=== PATIENT | male | born 1950 | race Two or more races ===

== ENCOUNTER 2022-11-09 10:28 | Inpatient (IN) | payer BC, MEDICARE ==
[~2022-11-09] VITALS: Ht 172.7 cm; Wt 43.5 kg
[2022-11-09] VITALS (24 sets, daily range): BP systolic 74–125; BP diastolic 53–84
[2022-11-09] MEDS ORDERED: NA P133E RC (10:42)
[2022-11-09] MEDS ORDERED: FAMO20TA8 PO (10:42)
[2022-11-09] MEDS ORDERED: LACT10SO3 PO (10:42)
[2022-11-09] MEDS ORDERED: DOCU-141 PO (10:42)
[2022-11-09] MEDS ORDERED: POLY17PO4 PO (10:42)
[2022-11-09] MEDS ORDERED: MAGN400O6 PO (10:42)
[2022-11-09] MEDS ORDERED: ASCO-352 PO (10:42)
[2022-11-09] MEDS ORDERED: DEXA2TAB PO (10:42)
[2022-11-09] MEDS ORDERED: BISA10SU11 RC (10:42)
[2022-11-09] MEDS ORDERED: MULT-447 PO (10:42)
[2022-11-09] MEDS ORDERED: TAMS-12 PO (10:42)
[2022-11-09] MEDS ORDERED: GABA600T12 PO (10:42)
[2022-11-09] MEDS ORDERED: AMIN30LI2 PO (10:42)
[2022-11-09] MEDS ORDERED: ACET-868 PO (10:42)
[2022-11-09] MEDS ORDERED: LISI10TA29 PO (10:42)
[2022-11-09] MEDS ORDERED: SENN-261 PO (10:42)
[2022-11-09] MEDS ORDERED: CYCL5TAB PO (10:42)
[2022-11-09] MEDS ORDERED: HYDR-3980 PO (10:42)
[2022-11-09] MEDS ORDERED: IV NS 0.9% 1,000 ML BAG IV ONE ×2 (11:00→13:30)
--- NOTE | 2022-11-09 11:00 | NUR ---
[facility] FOR NOTED HYPOTENSION AND LOW O2 SATURATION, 70% IN FIELD
--- NOTE | 2022-11-09 11:00 | NUR ---
PT HYPOTHERMIC ASSEMBLY INSPECTOR HELPER, GIVEN 400ML NS ASSEMBLY INSPECTOR HELPER. ON NON REBREATHER SATTING 100%
--- NOTE | 2022-11-09 11:03 | NUR ---
MOVE SHEET SUBMITTED.
--- NOTE | 2022-11-09 11:21 | NUR ---
SWABBED PATIENT FOR COVID. SENT TO LAB.
--- NOTE | 2022-11-09 12:15 | NUR ---
2ND IVF HOOKED AND RUNNING AT MIDLINE ,RT ARM. CARRIED OUT MD VERBAL ORDER
--- NOTE | 2022-11-09 12:17 | NUR ---
midline iv inserted rt arm
--- NOTE | 2022-11-09 12:45 | NUR ---
URINE COLLECTED AND SENT TO THE LAB
--- NOTE | 2022-11-09 12:49 | NUR ---
BLD DRAWN FROM MIDLINE. C&S COLLECTED AND SENT TO LAB
[2022-11-09 12:56] LABS: BASOPHILS # (AUTO) 0.1 K/uL (0.0-0.2); BASOPHILS % (AUTO) 0.2 % (0.0-2.0); HEMATOCRIT 31 % (39-51); HEMOGLOBIN 9.7 g/dL (13.5-17.5); LYMPHOCYTES # (AUTO) 0.6 K/uL (0.8-4.8); LYMPHOCYTES % (AUTO) 1.7 % (20.0-44.0); MEAN CORPUSCULAR HGB CONC 32 g/dl (31.0-36.0); MEAN CORPUSCULAR VOLUME 80 fL (80-96); MONOCYTES # (AUTO) 0.6 K/uL (0.1-1.30); MONOCYTES % (AUTO) 1.7 % (2.0-12.0); NEUTROPHILS # (AUTO) 33.5 K/uL (1.8-8.9); NEUTROPHILS % (AUTO) 96.4 % (43.0-81.0); PLATELET COUNT (AUTO) 165 K/uL (150-450); RED BLOOD CELL COUNT(AUTO) 3.84 MIL/uL (4.5-6.0)
--- NOTE | 2022-11-09 13:03 | NUR ---
HILARY CONLEY [facility] TEL [phone] AND FAX [phone]
[2022-11-09 13:10] LABS: CALCIUM, SERUM 8.6 mg/dL (8.5-10.1); CARBON DIOXIDE 20 mmol/L (21-32); CHLORIDE 100 mmol/L (98-107); CREATININE 3.6 mg/dL (0.6-1.3); GLUCOSE 91 mg/dL (74-106); SODIUM SERUM 134 mmol/L (136-145); WHITE BLOOD COUNT (AUTO) 34.8 K/uL (4.3-11.0)
[2022-11-09 13:12] LABS: POTASSIUM 6.2 mmol/L (3.5-5.1); UREA NITROGEN, BLOOD 111 mg/dL (7-18)
--- NOTE | 2022-11-09 13:12 | NUR ---
BUN 111 , K 6.2, DR NOTIFIED
[2022-11-09 13:16] LABS: BILIRUBIN,URINE 1+ (NEGATIVE); COLOR,URINE DARK YELLOW (YELLOW); LEUKOCYTE ESTERASE ,URINE 3+ (NEGATIVE); NITRITE, URINE POSITIVE (NEGATIVE); PH,URINE 5.5 (5.0-8.0); PROTEIN,URINE 1+ mg/dl (NEGATIVE); UGLUCOSE NEGATIVE (NEGATIVE)
[2022-11-09 13:16] LABS: ALANINE AMINOTRANSFERASE 17 U/L (12-78); ALBUMIN 2.3 g/dL (3.4-5.0); ALKALINE PHOSPHATASE 73 U/L (46-116); BILIRUBIN,DIRECT 0.4 mg/dL (0.0-0.2); BILIRUBIN,TOTAL 0.6 mg/dL (0.2-1.0); TOTAL PROTEIN, SERUM 6.3 g/dL (6.4-8.2)
[2022-11-09 13:25] LABS: BACTERIA,URINE Moderate /HPF (None Seen); SQUAMOUS EPITHELIAL CELL,UR Few /HPF (None Seen)
[2022-11-09] MEDS ORDERED: SODIUM POLYSTYRENE SULFONATE 15 G/60 ML BOTTLE PO ONE (13:30)
[2022-11-09] MEDS ORDERED: FUROSEMIDE 40 MG/4 ML VIAL IV ONE (13:30)
[2022-11-09] MEDS ORDERED: INSULIN REGULAR, HUMAN 100 UNIT/ML 10 ML VIAL IV ONE (13:30)
[2022-11-09] MEDS ORDERED: VANCOMYCIN 1 GM in IV D5W 250 ML IV ONE (13:30)
[2022-11-09] MEDS ORDERED: CEFEPIME 1 GM in IV D5W 50 ML IV ONE (13:30)
[2022-11-09] MEDS ORDERED: CALCIUM CHLORIDE 1,000 MG/10 ML DISP.SYRIN IV ONE (13:30)
[2022-11-09] MEDS ORDERED: DEXTROSE 50%-WATER 50 ML DISP.SYRIN IV ONE (13:30)
[2022-11-09] MEDS ORDERED: FUROSEMIDE 20 MG/2 ML VIAL ONE (13:34)
[2022-11-09] MEDS ORDERED: DEXTROSE 50%-WATER 50 ML DISP.SYRIN ONE (13:34)
[2022-11-09] MEDS ORDERED: SODIUM POLYSTYRENE SULFONATE 15 G/60 ML BOTTLE ONE ×3 (13:34→22:40)
[2022-11-09 13:35] LABS: ASPARTATE AMINOTRANSFERASE 23 U/L (15-37)
[2022-11-09] MEDS ORDERED: INSULIN REGULAR, HUMAN 100 UNIT/ML 10 ML VIAL ONE (13:35)
--- NOTE | 2022-11-09 13:36 | NUR ---
CALLED [facility] [phone] DR. ACUÑA SPOKE WITH DR. LUU. PLEASE CALL DR. MABRY FOR ADMISSION.
--- NOTE | 2022-11-09 13:39 | NUR ---
CALLED [facility] [phone] DR. CLOTILDE FINNEY.
[2022-11-09] MEDS ORDERED: CALCIUM CHLORIDE 1,000 MG/10 ML DISP.SYRIN ONE (13:57)
--- NOTE | 2022-11-09 14:24 | NUR ---
CALLED [facility] [phone] DR. MABRY PAGED AGAIN.
--- NOTE | 2022-11-09 14:33 | NUR ---
GOT BED 105 ADMITTING NOTIFIED.
--- NOTE | 2022-11-09 14:57 | NUR ---
Trish jensen in [facility] - 11/09/22 at 1459 by OLIVA bld transfusion started at 1455 at LT WRIST 20G RUNNING THRU PUMP
--- NOTE | 2022-11-09 15:20 | NUR ---
REPORT GIVEN TO NURSE SABILLON FOR [facility]
--- NOTE | 2022-11-09 15:43 | NUR ---
THE PATIENT IS TRANSFERED TO ROOM 105 IN STABLE CONDITION AND PER ACLS POLICY
--- NOTE | 2022-11-09 15:51 | NUR ---
computer patternmaker note pt is alert and oriented x1 at this time. no signs of pain or discomfort. pt noted to have right upper arm midline and left wrist iv. iv intact, patent and flushing well. pt is on bedside pvc monitor currently sinus tachycardia at 109.pt on 5 l nasal cannula saturating above 92% pt has curtis cathether yellow/alireza color draining to gravity. all safety measures in place. call light within reach. bed locked at lowest position. side rails up x2. bed alarm on.
[2022-11-09] MEDS ORDERED: IV NS 0.9% 500 ML IV ONE (16:30)
[2022-11-09] MEDS ORDERED: PIPERACILLIN /TAZOBACTAM 3.375 G in IV D5W 50 ML IV SCH (16:30)
[2022-11-09] MEDS ORDERED: IV NS 0.9% 1,000 ML IV SCH (16:30)
[2022-11-09] MEDS ORDERED: ACETAMINOPHEN 325 MG TABLET PO PRN (16:30)
[2022-11-09] MEDS ORDERED: SODIUM POLYSTYRENE SULF. PWD 15 GM UDC RC ONE (17:30)
--- NOTE | 2022-11-09 17:46 | NUR ---
DR. PAPPAS NOTIFIED.
--- NOTE | 2022-11-09 18:00 | NUR ---
RN NOTE gave report to [facility] DINKEY DISPATCHER for contuity of care. transferred via ACLS protocol to room 259
--- NOTE | 2022-11-09 18:00 | NUR ---
RN NOTES RECEIVED PT FROM TELE FLOOR , PT IS LETHARGIC , FOLLOWS SIMPLE COMMAND, SLOW TO VERBAL RESPONDS , ON TELE ST HR IN 100'S, LOW BP NOTED , BOLUS NS 500CC, IV STARTED PER MD ORDER . IV SITES CDI, DR MABRY NOTIFIED, ORDER RECEIVED FOR LEVO DRIP, CONTINUE TO MONITOR
[2022-11-09] MEDS: PIPERACILLIN /TAZOBACTAM 2.25 G in IV D5W 50 ML IV SCH (18:36)
[2022-11-09] MEDS: IV NS 0.9% 1,000 ML IV PRN (18:37)
--- NOTE | 2022-11-09 19:08 | NUR ---
RN NOTES BP =101/63 , WILL ENDORSE TO DIRECTOR OF SOFTWARE DEVELOPMENT NURSE FOR CONTINUITY OF CARE .
[2022-11-09 19:15] LABS: LYMPHOCYTES % (MANUAL) 4 % (16-48); MONOCYTES % (MANUAL) 3 % (0-11.0); NEUTROPHILS % (MANUAL) 93 (42-76)
[2022-11-09] MEDS: NOREPINEPHRINE 32 MG in IV NS 0.9% 218 ML IV PRN (19:40)
[2022-11-09 19:47] LABS: CALCIUM, SERUM 9.6 mg/dL (8.5-10.1); CARBON DIOXIDE 14 mmol/L (21-32); CHLORIDE 100 mmol/L (98-107); CREATININE 3.3 mg/dL (0.6-1.3); GLUCOSE 56 mg/dL (74-106); SODIUM SERUM 132 mmol/L (136-145)
[2022-11-09 19:48] LABS: POTASSIUM 6.6 mmol/L (3.5-5.1)
[2022-11-09 19:49] LABS: UREA NITROGEN, BLOOD 103 mg/dL (7-18)
[2022-11-09] MEDS ORDERED: SODIUM POLYSTYRENE SULFONATE 15 G/60 ML BOTTLE RC ONE (21:00)
--- NOTE | 2022-11-09 21:06 | NUR ---
ICU/FLEET ADMINISTRATIVE ASSISTANT 1919-LEVO 32MG STARTED FOR LOW BP, BY BELL HOLE DIGGER NURSE. WILL MONITOR THIS PT. 1939-PT TAKEN DOWN STAT CT ABD. 2014- MADE AWARE OF CRITICAL LAB POTASSIUM 6.6, WAIT FOR ORDERS. PT IS LETHARGIC UNABLE TO TAKE PO 2029-CRITICAL IMAGINE RESULTS SENT CLOTILDE. SAID HE WAS GOING TO PUT IN ORDERS. 2114-CLOTILDE CALLED [facility] ABOUT EMERGENCY HD.
[2022-11-09 21:08] LABS: ABG BASE EXCESS -7.6 mmol/L; ABG PCO2 37.3 mmHg (35.0-45.0); ABG PH 7.304 (7.350-7.450); ABG PO2 200.1 mmHg (75.0-100.0); COHb 0.3 % (0.5-1.5); MetHb 0.5 % (0.0-1.5); O2Hb 98.3 % (94.0-97.0); SITE, ABG Right Radial; VENT MODE, BG 5LPM NC
--- NOTE | 2022-11-09 21:34 | NUR ---
ICU/AMBULATORY TECHNOLOGIST SPOT CHECK OF BLOOD SUGAR WAS 74. LAB GIL CHEM PANEL BS WAS 56. WILL MONITOR THIS PT.
--- NOTE | 2022-11-09 21:45 | NUR ---
ICU/MONUMENT STONECUTTER ABG DONE AND RESULTED CLOTILDE SAID TO GIVE X2 AMP BICARB, ABG HCO3-18.1. THIS ORDER WAS PLACED AND CARRIED OUT.
[2022-11-09] MEDS ORDERED: SODIUM BICARBONATE SYR 50 MEQ/50 ML DISP.SYRIN IV ONE (22:00)
--- NOTE | 2022-11-09 23:47 | NUR ---
ICU/COSTUME TECHNICIAN KAYEXALATE 60GRAM BROUGHT UP FROM NIGHT LOCKER. FLEXISEAL PLACED TO HELP ADMINISTRATE MEDIATIONS. WILL CONTINUE TO MONITOR THIS PT.
[2022-11-10] VITALS (72 sets, daily range): BP systolic 61–140; BP diastolic 55–92
--- NOTE | 2022-11-10 00:30 | NUR ---
ICU/REMNANT SORTER PT HAS CHEM PANEL DONE FOR HIGH POTASSIUM LEVELS, WAS 6.6 NOW 4.8. PT CONTINUES TO HAVE WATERY STOOL. IN AM PT HAS MORE LABS.
[2022-11-10] MEDS: PIPERACILLIN /TAZOBACTAM 2.25 G in IV D5W 50 ML IV SCH ×4 (00:49→23:59)
[2022-11-10 01:19] LABS: CARBON DIOXIDE 23 mmol/L (21-32); CHLORIDE 104 mmol/L (98-107); CREATININE 2.8 mg/dL (0.6-1.3); GLUCOSE 96 mg/dL (74-106); POTASSIUM 4.8 mmol/L (3.5-5.1); SODIUM SERUM 141 mmol/L (136-145)
[2022-11-10 01:20] LABS: UREA NITROGEN, BLOOD 92 mg/dL (7-18)
--- NOTE | 2022-11-10 02:41 | NUR ---
ICU/MANUFACTURING ENGINEERING TECHNOLOGIST PT APPEARS TO BE MORE AWAKE ABLE TO ASK FOR THINGS AND MAKE NEEDS KNOWN.
[2022-11-10 05:02] LABS: BASOPHILS % (AUTO) 0.2 % (0.0-2.0); EOSINOPHILS % (AUTO) 0.1 % (0.0-6.0); HEMATOCRIT 32 % (39-51); LYMPHOCYTES # (AUTO) 0.6 K/uL (0.8-4.8); MEAN CORPUSCULAR HGB CONC 31 g/dl (31.0-36.0); MEAN CORPUSCULAR VOLUME 81 fL (80-96); MONOCYTES % (AUTO) 3.6 % (2.0-12.0); NEUTROPHILS # (AUTO) 26.3 K/uL (1.8-8.9); NEUTROPHILS % (AUTO) 94.1 % (43.0-81.0); PLATELET COUNT (AUTO) 174 K/uL (150-450); RED BLOOD CELL COUNT(AUTO) 3.94 MIL/uL (4.5-6.0); WHITE BLOOD COUNT (AUTO) 27.9 K/uL (4.3-11.0)
[2022-11-10 05:23] LABS: CALCIUM, SERUM 8.8 mg/dL (8.5-10.1); CARBON DIOXIDE 22 mmol/L (21-32); CHLORIDE 105 mmol/L (98-107); CREATININE 2.5 mg/dL (0.6-1.3); GLUCOSE 95 mg/dL (74-106); POTASSIUM 4.5 mmol/L (3.5-5.1); SODIUM SERUM 142 mmol/L (136-145)
[2022-11-10 05:27] LABS: UREA NITROGEN, BLOOD 84 mg/dL (7-18)
[2022-11-10 05:30] LABS: THYROID STIMULATING HORMONE 0.384 uIU/mL (0.358-3.74)
[2022-11-10] MEDS: IV NS 0.9% 1,000 ML IV PRN ×2 (06:53→17:50)
--- NOTE | 2022-11-10 07:20 | NUR ---
PATIENT IS AWAKE, ALERT X 1-2. ON RA, SAT 98%. IV ACCESS RIGHT UA MIDLINE, PATENT, RUNNING NS AT 100ML/HR. CASTILLO CATH IN PLACE, DRAINING CROW COLLORED URINE BY GRAVITY. FLEXISEAL FOR BM, HAS 200 ML OF OUTPUT IN THE BAG. SR/ST ON HEMMING AND TACKING MACHINE OPERATOR. SAFETY MEASURES IMPLEMENTED, BED LOCKED, SIDE RAILS AR UP.
[2022-11-10 16:51] LABS: BAND % (MANUAL) 2 % (0.0-5.0); LYMPHOCYTES % (MANUAL) 3 % (16-48); MONOCYTES % (MANUAL) 1 % (0-11.0); NEUTROPHILS % (MANUAL) 94 (42-76)
--- NOTE | 2022-11-10 19:15 | NUR ---
RN CLOSING NOTE PT ASLEEP, O2 ON RA SAT 99%, IV ACCESS RIGHT UA, INTACT. CASTILLO CATH IN PLACE, DRAINING BY GRAVITY, FLEXESEAL IS OUT. ENDORSE TO THE UPCOMING SHIFT NURSE FOR [facility].
--- NOTE | 2022-11-10 19:28 | NUR ---
REPORTING SPECIALIST. INITIAL ASSESSMENT. RECEIVED THE PT REST IN BED. SLEEPING VERY LETHARGIC. PT IS ROOM AIR. SAT 96%. NO ACUTE DISTRESS NOTED. COLLECTION SYSTEMS CONSULTANT SHOWING NSR. IV RT UPPER ARM MID LINE. LEVOPHED 0.1MCG/KG/MIN, IVF NS 100 ML/H. FC PATENT. WILL CONTINUE TO MONITOR VITALS.
--- NOTE | 2022-11-10 20:00 | NUR ---
agricultural plow operator. night monitor showing 30mts a fib. rate is 108. notified DR canales. 2030 BACK TO NSR.
[2022-11-11] VITALS (96 sets, daily range): BP systolic 79–135; BP diastolic 54–112
--- NOTE | 2022-11-11 02:58 | NUR ---
curriculum and assessment coordinator. am care given. remaining same ivf running. pt is room air. sat 98%. no acute distress noted. equipment monitor phototypesetting showing nsr. iv rt upper arm mid line. ivf ns 100ml/h. levophed 0.1mcg/kg/min, fc patent. urine draining. hob elevated. turn and reposition q2h. will continue to monitor vitals.
[2022-11-11 04:34] LABS: BASOPHILS % (AUTO) 0.1 % (0.0-2.0); EOSINOPHILS % (AUTO) 0.5 % (0.0-6.0); HEMATOCRIT 31 % (39-51); HEMOGLOBIN 9.8 g/dL (13.5-17.5); LYMPHOCYTES # (AUTO) 0.5 K/uL (0.8-4.8); LYMPHOCYTES % (AUTO) 2.8 % (20.0-44.0); MEAN CORPUSCULAR HGB CONC 31 g/dl (31.0-36.0); MEAN CORPUSCULAR VOLUME 81 fL (80-96); MONOCYTES # (AUTO) 0.9 K/uL (0.1-1.30); MONOCYTES % (AUTO) 4.8 % (2.0-12.0); NEUTROPHILS # (AUTO) 17.5 K/uL (1.8-8.9); NEUTROPHILS % (AUTO) 91.8 % (43.0-81.0); PLATELET COUNT (AUTO) 154 K/uL (150-450); RED BLOOD CELL COUNT(AUTO) 3.87 MIL/uL (4.5-6.0); WHITE BLOOD COUNT (AUTO) 19.1 K/uL (4.3-11.0)
[2022-11-11 04:48] LABS: CALCIUM, SERUM 8.5 mg/dL (8.5-10.1); CARBON DIOXIDE 22 mmol/L (21-32); CHLORIDE 108 mmol/L (98-107); CREATININE 1.8 mg/dL (0.6-1.3); GLUCOSE 111 mg/dL (74-106); MAGNESIUM 2.3 mg/dL (1.8-2.4); POTASSIUM 3.5 mmol/L (3.5-5.1); SODIUM SERUM 144 mmol/L (136-145); UREA NITROGEN, BLOOD 57 mg/dL (7-18)
[2022-11-11] MEDS: IV NS 0.9% 1,000 ML IV PRN ×2 (07:00→14:05)
--- NOTE | 2022-11-11 07:30 | NUR ---
OPENING NOTE: REPORT RECEIVED FROM LYNN ACUNA. ORDERS AND LABS REVIEWED DURING REPORT. PT CONTINUES TO BE ON LEVOPHED GTT FOR LOW BLOOD PRESSURE, TITRATED PER MD ORDERS. PT HAS A POOR APPETITE, ENCOURAGED TO EAT. PT CHECKED ON HOURLY AND PRN BY NURSING STAFF.
[2022-11-11] MEDS: PIPERACILLIN /TAZOBACTAM 2.25 G in IV D5W 50 ML IV SCH ×2 (08:42→16:24)
[2022-11-11] MEDS: ASPIRIN 81 MG TAB.CHEW PO SCH (08:43)
[2022-11-11] MEDS: NOREPINEPHRINE 32 MG in IV NS 0.9% 218 ML IV PRN (08:43)
[2022-11-11] MEDS ORDERED: FLUDROCORTISONE 0.1 MG TABLET PO SCH (12:00)
[2022-11-11] MEDS ORDERED: HYDROCORTISONE SOD SUCCINATE 100 MG/2 ML VIAL IV SCH (13:00)
[2022-11-11] MEDS: ENSURE ENLIVE 237 ML LIQUID (VANILLA) PO SCH ×2 (13:00→17:31)
[2022-11-11] MEDS ORDERED: POLYETHYLENE GLYCOL 3350 17 GM POWD.PACK PO PRN (14:00)
[2022-11-11] MEDS ORDERED: HYDROCODONE/APAP 10/325MG TABLET PO PRN (14:00)
[2022-11-11] MEDS ORDERED: NA PHOS,M-B/NA PHOS,DI-BA 1 EA ENEMA RC PRN (14:00)
[2022-11-11] MEDS ORDERED: BISACODYL SUPP (10 MG) 10 MG/SUPP.RECT SUPP.RECT RC PRN (14:00)
[2022-11-11] MEDS ORDERED: MAGNESIUM HYDROXIDE 30 ML UDC PO PRN (14:00)
[2022-11-11] MEDS ORDERED: ALBUTEROL FS 2.5 MG/0.5 ML VIAL.NEB NEB PRN (14:00)
[2022-11-11] MEDS ORDERED: FLUDROCORTISONE 0.1 MG TABLET PO ONE (16:00)
[2022-11-11] MEDS: CYCLOBENZAPRINE 10 MG TABLET PO SCH (16:24)
[2022-11-11] MEDS: GABAPENTIN 400 MG CAPSULE PO SCH (16:24)
[2022-11-11] MEDS: LACTULOSE 10 G/15 ML UDC (PYXIS) PO SCH ×2 (16:28→17:00)
[2022-11-11] MEDS: DEXAMETHASONE 1 MG TABLET PO SCH (16:33)
[2022-11-11] MEDS: TAMSULOSIN 0.4 MG CAP.SR.24H PO SCH ×2 (18:00→18:47)
[2022-11-11] MEDS ORDERED: ATORVASTATIN 10 MG TABLET PO SCH (22:00)
[2022-11-11] MEDS: SENNOSIDES 8.6 MG TABLET PO SCH (22:07)
[2022-11-12] VITALS (56 sets, daily range): BP systolic 86–153; BP diastolic 58–96
[2022-11-12] MEDS: PIPERACILLIN /TAZOBACTAM 2.25 G in IV D5W 50 ML IV SCH ×3 (00:38→16:21)
[2022-11-12] MEDS: IV NS 0.9% 1,000 ML IV PRN ×2 (00:44→11:57)
[2022-11-12 05:07] LABS: BASOPHILS % (AUTO) 0.1 % (0.0-2.0); HEMATOCRIT 30 % (39-51); HEMOGLOBIN 9.6 g/dL (13.5-17.5); LYMPHOCYTES # (AUTO) 0.5 K/uL (0.8-4.8); LYMPHOCYTES % (AUTO) 4.6 % (20.0-44.0); MEAN CORPUSCULAR HGB CONC 32 g/dl (31.0-36.0); MEAN CORPUSCULAR VOLUME 82 fL (80-96); MONOCYTES # (AUTO) 0.5 K/uL (0.1-1.30); MONOCYTES % (AUTO) 4.8 % (2.0-12.0); NEUTROPHILS # (AUTO) 9.7 K/uL (1.8-8.9); NEUTROPHILS % (AUTO) 90.5 % (43.0-81.0); PLATELET COUNT (AUTO) 151 K/uL (150-450); WHITE BLOOD COUNT (AUTO) 10.7 K/uL (4.3-11.0)
[2022-11-12 05:28] LABS: ALANINE AMINOTRANSFERASE 14 U/L (12-78); ALBUMIN 1.8 g/dL (3.4-5.0); ALKALINE PHOSPHATASE 58 U/L (46-116); ASPARTATE AMINOTRANSFERASE 14 U/L (15-37); BILIRUBIN,TOTAL 0.6 mg/dL (0.2-1.0); CALCIUM, SERUM 8.2 mg/dL (8.5-10.1); CARBON DIOXIDE 22 mmol/L (21-32); CHLORIDE 109 mmol/L (98-107); CREATININE 1.3 mg/dL (0.6-1.3); GLUCOSE 156 mg/dL (74-106); MAGNESIUM 2.2 mg/dL (1.8-2.4); POTASSIUM 3.5 mmol/L (3.5-5.1); SODIUM SERUM 142 mmol/L (136-145); TOTAL PROTEIN, SERUM 5.4 g/dL (6.4-8.2); UREA NITROGEN, BLOOD 42 mg/dL (7-18)
--- NOTE | 2022-11-12 07:05 | NUR ---
RN NOTES RECEIVED PT ON BED, ALERT/ FOLLOWS COMMAND, PT IS ROOM AIR. SAT WNL, OFF LEVO AT THIS TIME, NO ACUTE DISTRESS NOTED. CARDIOVASCULAR PHYSICIAN ASSISTANT SHOWING NSR. IV SITES CDI, IVF NS 100 ML/HR RUNNING, CASTILLO DRAINING TO GRAVITY, SR UP x3, CALL LIGHT WWITHIN EASY REACH, BED LOCKED AND IN LOWEST POSITION, CONTINUE TO MONITOR
--- NOTE | 2022-11-12 07:19 | NUR ---
ICU/SALES SERVICE COORDINATOR STABLE BP, LEVO WAS PLACED ON HOLD. WILL MONITOR THIS PT FOR ANY CHANGES.
[2022-11-12] MEDS: FAMOTIDINE (20 MG) 20 MG TABLET PO SCH (08:32)
[2022-11-12] MEDS: DOCUSATE SODIUM 100 MG CAPSULE PO SCH ×2 (08:32→16:26)
[2022-11-12] MEDS: ASCORBIC ACID 500 MG TABLET PO SCH (08:32)
[2022-11-12] MEDS: CYCLOBENZAPRINE 10 MG TABLET PO SCH ×3 (08:32→16:26)
[2022-11-12] MEDS: LACTULOSE 10 G/15 ML UDC (PYXIS) PO SCH ×3 (08:32→16:26)
[2022-11-12] MEDS: MULTIVIT W/MINERALS 1 TAB TABLET PO SCH (08:32)
[2022-11-12] MEDS: ASPIRIN 81 MG TAB.CHEW PO SCH (08:32)
[2022-11-12] MEDS: GABAPENTIN 400 MG CAPSULE PO SCH ×2 (08:32→16:26)
[2022-11-12] MEDS: DEXAMETHASONE 1 MG TABLET PO SCH ×2 (08:35→16:26)
[2022-11-12] MEDS: PROSOURCE / PROSTAT (PYXIS) 30 ML UDC PO SCH (08:35)
[2022-11-12] MEDS: ENSURE ENLIVE 237 ML LIQUID (VANILLA) PO SCH ×3 (08:36→16:26)
[2022-11-12 08:48] LABS: IRON, SERUM 16 ug/dl (50-175); TOTAL IRON BINDING CAPACITY 77 ug/dl (250-450)
[2022-11-12] MEDS ORDERED: FLUDROCORTISONE 0.1 MG TABLET PO SCH (09:00)
[2022-11-12 11:25] LABS: FERRITIN 387 ng/mL (8-388)
--- NOTE | 2022-11-12 16:30 | NUR ---
RN NOTES PT REFUSING TO TAKE MEDS AND AM AND PM CARE, STATED WANTS TO SLEEP . BP STABLE , OFF LEVO , DR ROPER NOTIFIED .
[2022-11-12] MEDS: TAMSULOSIN 0.4 MG CAP.SR.24H PO SCH (17:57)
--- NOTE | 2022-11-12 18:24 | NUR ---
RN NOTES PT OFF LEVO , REFUSING CARE AND MD LENNOX AWARE , VSS STABLE, WILL ENDORSE TO PLASTIC TUBING INSULATION SUPERVISOR NURSE FOR CONTINUITY OF CARE .
--- NOTE | 2022-11-12 19:30 | NUR ---
RECEIVED PT ASLEEP ON BED, EASILY AROUSABLE/RESPONSIVE. A/OX3. PT IS ON ROOM AIR. SAT WNL, ATTACHED TO MANAGER CATH LAB SHOWING NSR. IV SITES NERY ML #18G, LT WRIST # 22G, CDI, IVF NS INFUSING AT 100 ML/HR. CASTILLO DRAINING TO GRAVITY. OFFERED ENSURE. PT REFUSED. SAFETY MEASURES IN PLACE. SR UP x3, CALL LIGHT WITHIN EASY REACH, BED LOCKED AND IN LOWEST POSITION. HOB SLIGHTLY ELEVATED. WILL CONTINUE PLAN OF CARE.
--- NOTE | 2022-11-12 20:26 | NUR ---
REPORT GIVEN TO LUZ ACUNA. V/Kelton ALBRIGHT. WILL TRANSFER VIA ACLS PROTOCOL ORDERED. PT INFORMED.
[2022-11-12] MEDS: SENNOSIDES 8.6 MG TABLET PO SCH (22:00)
--- NOTE | 2022-11-12 22:00 | NUR ---
VERN M/S RN RECEIVING NOTE PATIENT BROUGHT IN UNIT AT AROUND 2111, ACCOMPANIED BY 2 ICU NURSES, VIA HOSPITAL BED. PATIENT IS ALERT AND ORIENTED BUT NON-VERBAL. NO S/S OF APPARENT DISTRESS ON ROOM AIR. DENIES PAIN. PATIENT HAS 2 IV ACCESS ON RIGHT UPPER ARM MIDLINE RUNNING NS @100MLS/HR AND LEFT WRIST #22G ON SALINE LOCK. PATIENT CASTILLO CATHETER DRAINING VIA GRAVITY, DARK YELLOW URINE. PATIENT ORIENTED IN THE UNIT AND THE USE OF CALL LIGHT. V/S TAKEN AND CHARTED AND FOLLOWS: 92/58, HR-97, T-97.8, RR-18BPM, AND SATURATION 96% ON ROOM AIR. SAFETY IN PLACE-- BED IN LOWEST, LOCKED POSITION, CALL LIGHT WITHIN REACH, BED RAILS UP X4. PATIENT TRANSFERRED M/S STATUS. WILL CONTINUE WITH PATIENT'S PLAN OF CARE.
[2022-11-13] MEDS: PIPERACILLIN /TAZOBACTAM 2.25 G in IV D5W 50 ML IV SCH ×3 (00:33→16:13)
[2022-11-13] MEDS: IV NS 0.9% 1,000 ML IV PRN ×2 (00:43→16:21)
[2022-11-13 07:05] LABS: BASOPHILS % (AUTO) 0.2 % (0.0-2.0); EOSINOPHILS % (AUTO) 1.1 % (0.0-6.0); HEMATOCRIT 35 % (39-51); HEMOGLOBIN 10.9 g/dL (13.5-17.5); LYMPHOCYTES # (AUTO) 0.8 K/uL (0.8-4.8); LYMPHOCYTES % (AUTO) 6.6 % (20.0-44.0); MEAN CORPUSCULAR HGB CONC 32 g/dl (31.0-36.0); MEAN CORPUSCULAR VOLUME 82 fL (80-96); MONOCYTES # (AUTO) 0.8 K/uL (0.1-1.30); MONOCYTES % (AUTO) 6.9 % (2.0-12.0); NEUTROPHILS # (AUTO) 9.8 K/uL (1.8-8.9); NEUTROPHILS % (AUTO) 85.2 % (43.0-81.0); PLATELET COUNT (AUTO) 159 K/uL (150-450); RED BLOOD CELL COUNT(AUTO) 4.23 MIL/uL (4.5-6.0); WHITE BLOOD COUNT (AUTO) 11.5 K/uL (4.3-11.0)
--- NOTE | 2022-11-13 07:30 | NUR ---
MS RN OPENING NOTES: RECEIVED PT ASLEEP IN BED, EASILY ROUSED, A/OX3, ABLE TO MAKE NEEDS KNOWN. PT IS ON ROOM AIR. IV ACCESSES AT NERY ML #18G RUNNING NS @ 100ML/HR; LT WRIST # 22G, SL. CASTILLO DRAINING DARK YELLOW URINE. SAFETY MEASURES IN PLACE. SR UP x3, CALL LIGHT WITHIN EASY REACH, BED LOCKED AND IN LOWEST POSITION. HOB SLIGHTLY ELEVATED, CALL LIGHT AND TABLE WITHIN EASY REACH, WILL CONTINUE PLAN OF CARE DURING SHIFT.
[2022-11-13 07:38] LABS: ALANINE AMINOTRANSFERASE 12 U/L (12-78); ALKALINE PHOSPHATASE 55 U/L (46-116); ASPARTATE AMINOTRANSFERASE 18 U/L (15-37); BILIRUBIN,TOTAL 0.7 mg/dL (0.2-1.0); CALCIUM, SERUM 8.6 mg/dL (8.5-10.1); CARBON DIOXIDE 22 mmol/L (21-32); CHLORIDE 110 mmol/L (98-107); CREATININE 1.2 mg/dL (0.6-1.3); GLUCOSE 85 mg/dL (74-106); MAGNESIUM 2.1 mg/dL (1.8-2.4); PHOSPHORUS 2.3 mg/dL (2.5-4.9); POTASSIUM 3.5 mmol/L (3.5-5.1); SODIUM SERUM 142 mmol/L (136-145); TOTAL PROTEIN, SERUM 5.9 g/dL (6.4-8.2); UREA NITROGEN, BLOOD 33 mg/dL (7-18)
--- NOTE | 2022-11-13 07:39 | NUR ---
NOC RN CLOSING NOTE PATIENT SLEEPING COMFORTABLY, NO S/S OF APPARENT DISTRESS ON ROOM AIR. NEEDS ATTENDED. ENDORSED TO RNRADHA FOR CONTINUITY OF PATIENT CARE.
[2022-11-13 08:00] VITALS: BP 135/75
[2022-11-13] MEDS: LACTULOSE 10 G/15 ML UDC (PYXIS) PO SCH ×4 (09:00→17:00)
[2022-11-13] MEDS: ASPIRIN 81 MG TAB.CHEW PO SCH (09:01)
[2022-11-13] MEDS: GABAPENTIN 400 MG CAPSULE PO SCH ×2 (09:02→17:00)
[2022-11-13] MEDS: DOCUSATE SODIUM 100 MG CAPSULE PO SCH ×2 (09:02→17:00)
[2022-11-13] MEDS: CYCLOBENZAPRINE 10 MG TABLET PO SCH ×3 (09:02→17:00)
[2022-11-13] MEDS: MEGESTROL ACETATE 40 MG TABLET PO SCH ×2 (09:02→17:00)
[2022-11-13] MEDS: MULTIVIT W/MINERALS 1 TAB TABLET PO SCH (09:03)
[2022-11-13] MEDS: DEXAMETHASONE 1 MG TABLET PO SCH ×2 (09:03→17:00)
[2022-11-13] MEDS: ASCORBIC ACID 500 MG TABLET PO SCH (09:04)
[2022-11-13] MEDS: FAMOTIDINE (20 MG) 20 MG TABLET PO SCH (09:10)
[2022-11-13] MEDS: PROSOURCE / PROSTAT (PYXIS) 30 ML UDC PO SCH ×4 (09:10→17:00)
[2022-11-13] MEDS: ENSURE ENLIVE 237 ML LIQUID (VANILLA) PO SCH ×3 (09:23→17:04)
--- NOTE | 2022-11-13 09:39 | NUR ---
WOUND CARE CONSULT; PT PRESENTS WITH SACRAL DEEP TISSUE INJURY IN EVOLUTION,PRESENT ON ADMISSION. RECOMMENDATIONS MADE FOR SKIN PROTECTION. DISCUSSED WITH NURSING STAFF. FIRST STEP LOW AIRLOSS MATTRESS IS ON ORDER. PT IS EXTREMELY THIN AND BONY. IN AGREEMENT WITH PLAN OF CARE. Addendum: 11/13/22 at 0940 by GERMANIA ROBERSON WNDNU Amended: Links added.
[2022-11-13] MEDS ORDERED: IOHEXOL-350 100 ML VIAL IV ONE (09:50)
[2022-11-13] MEDS ORDERED: IV NS 0.9% 250 ML IV ONE (09:50)
[2022-11-13] MEDS ORDERED: CT SWABBABLE VALVE TRANS SET 1 EA INFUS.SET MC ONE (09:50)
[2022-11-13 16:00] VITALS: BP 112/78
[2022-11-13] MEDS ORDERED: K PHOS NEUTRAL 250 MG TABLET PO ONE (16:00)
[2022-11-13] MEDS: TAMSULOSIN 0.4 MG CAP.SR.24H PO SCH (17:14)
--- NOTE | 2022-11-13 17:15 | NUR ---
RN NOTES; MED REFUSED PT REFUSED SOME AM MEDS AND ALL PM MEDS. RN EXPLAINED IMPORTANCE OF TAKING MEDICATIONS AND RATIONALE OF EACH, PT STILL REFUSED. MEDS RETURNED PER PROTOCOL, MADE MD AWARE. PT REPORTS GENERALIZED PAIN 02/07, WILL MEDICATE ORDERED.
--- NOTE | 2022-11-13 18:46 | NUR ---
RN CLOSING NOTES: RECEIVED PT ASLEEP IN BED, EASILY ROUSED, A/OX3, ABLE TO MAKE NEEDS KNOWN. PT IS ON ROOM AIR. IV ACCESSES AT NERY ML #18G RUNNING NS @ 100ML/HR; LT WRIST # 22G, SL. CASTILLO DRAINING DARK YELLOW URINE, TOTAL OUTPUT= 400CC. PT REFUSED SOME MEDS, MD AWARE. NEEDS MET, KEPT PT CLEAN, DRY AND COMFORTABLE. WOUND CARE DONE. SAFETY MEASURES IN PLACE. SR UP x3, CALL LIGHT WITHIN EASY REACH, BED LOCKED AND IN LOWEST POSITION. HOB SLIGHTLY ELEVATED, CALL LIGHT AND TABLE WITHIN EASY REACH, WILL ENDORSE TO PM SHIFT.
[2022-11-13 20:09] VITALS: BP 102/68
--- NOTE | 2022-11-13 20:11 | NUR ---
MS/TELE/RN PATIENT IS SLEEPING AT THIS TIME, APPEARS COMFORTABLE, NO SIGNS OF DISTRESS NOTED, CALL LIGHT IN REACH, FALL PRECAUTIONS PER PROTOCOL, WILL MONITOR.
[2022-11-13] MEDS: SENNOSIDES 8.6 MG TABLET PO SCH (22:00)
--- NOTE | 2022-11-13 22:25 | NUR ---
MS/TELE/RN PATIENT IS AWAKE, AT THIS TIME, PATIENT IS ALERT AND ORIENTED, NO C/O PAIN, NO SIGNS OF DISTRESS NOTED. PATIENT REFUSED DUE MED, SENNOSIDE, EXPLAINED IMPORTANCE OF MED, BUT STILL REFUSED.
--- NOTE | 2022-11-14 01:00 | NUR ---
MS/TELE/RN PATIENT IS SLEEPING, NO SIGNS OF DISTRESS NOTED, CALL LIGHT IN REACH, WILL CONTINUE TO MONITOR.
[2022-11-14] MEDS: PIPERACILLIN /TAZOBACTAM 2.25 G in IV D5W 50 ML IV SCH ×2 (01:35→09:39)
[2022-11-14] MEDS: IV NS 0.9% 1,000 ML IV PRN (01:41)
--- NOTE | 2022-11-14 06:09 | NUR ---
MS/TELE/RN PATIENT IS STILL SLEEPING AT THIS TIME, NO DISTRESS NOTED, NO CHANGE IN CONDITION, ALL NEEDS ATTENDED AT THIS TIME, WILL CONTINUE TO MONITOR.
[2022-11-14 06:24] LABS: BASOPHILS % (AUTO) 0.2 % (0.0-2.0); EOSINOPHILS % (AUTO) 1.4 % (0.0-6.0); HEMATOCRIT 34 % (39-51); HEMOGLOBIN 10.7 g/dL (13.5-17.5); LYMPHOCYTES # (AUTO) 0.8 K/uL (0.8-4.8); LYMPHOCYTES % (AUTO) 7.2 % (20.0-44.0); MEAN CORPUSCULAR HGB CONC 31 g/dl (31.0-36.0); MEAN CORPUSCULAR VOLUME 82 fL (80-96); MONOCYTES # (AUTO) 0.7 K/uL (0.1-1.30); MONOCYTES % (AUTO) 6.4 % (2.0-12.0); NEUTROPHILS # (AUTO) 8.9 K/uL (1.8-8.9); NEUTROPHILS % (AUTO) 84.8 % (43.0-81.0); PLATELET COUNT (AUTO) 162 K/uL (150-450); RED BLOOD CELL COUNT(AUTO) 4.14 MIL/uL (4.5-6.0); WHITE BLOOD COUNT (AUTO) 10.5 K/uL (4.3-11.0)
[2022-11-14 06:47] LABS: CALCIUM, SERUM 8.4 mg/dL (8.5-10.1); CARBON DIOXIDE 20 mmol/L (21-32); CHLORIDE 110 mmol/L (98-107); CREATININE 1.1 mg/dL (0.6-1.3); GLUCOSE 64 mg/dL (74-106); POTASSIUM 3.7 mmol/L (3.5-5.1); SODIUM SERUM 143 mmol/L (136-145); UREA NITROGEN, BLOOD 26 mg/dL (7-18)
--- NOTE | 2022-11-14 07:30 | NUR ---
MS RN OPENING NOTES: RECEIVED PT AWAKE IN BED, EASILY ROUSED, A/OX3, ABLE TO MAKE NEEDS KNOWN. PT IS ON ROOM AIR. IV ACCESSES AT NERY ML #18G RUNNING NS @ 100ML/HR; LT WRIST # 22G, SL. CASTILLO DRAINING DARK YELLOW URINE. ON NPO SP MIDNIGHT. NEEDS MET, KEPT PT CLEAN, DRY AND COMFORTABLE. WOUND CARE DONE. SAFETY MEASURES IN PLACE. SR UP x3, CALL LIGHT WITHIN EASY REACH, BED LOCKED AND IN LOWEST POSITION. HOB SLIGHTLY ELEVATED, CALL LIGHT AND TABLE WITHIN EASY REACH, WILL ADMINISTER ALL MEDS ORDERED AND CONTINUE TO MONITOR.
[2022-11-14 08:00] VITALS: BP 116/82
[2022-11-14] MEDS: ASPIRIN 81 MG TAB.CHEW PO SCH (08:44)
[2022-11-14] MEDS: LACTULOSE 10 G/15 ML UDC (PYXIS) PO SCH ×3 (08:44→17:00)
[2022-11-14] MEDS: GABAPENTIN 400 MG CAPSULE PO SCH ×2 (08:45→17:00)
[2022-11-14] MEDS: DEXAMETHASONE 1 MG TABLET PO SCH ×2 (08:46→17:00)
[2022-11-14] MEDS: MULTIVIT W/MINERALS 1 TAB TABLET PO SCH (08:46)
[2022-11-14] MEDS: DOCUSATE SODIUM 100 MG CAPSULE PO SCH ×2 (08:46→17:00)
[2022-11-14] MEDS: MEGESTROL ACETATE 40 MG TABLET PO SCH ×2 (08:46→17:00)
[2022-11-14] MEDS: ASCORBIC ACID 500 MG TABLET PO SCH (08:46)
[2022-11-14] MEDS: FAMOTIDINE (20 MG) 20 MG TABLET PO SCH (08:46)
--- NOTE | 2022-11-14 08:50 | NUR ---
RN NOTES RETURNED FLEXERIL 1 TAB TO OMNICELL THINKING LACK ONE TAB. REMOVED ONE TAB AND ADMINISTERED HALF DOSE. RETURNED LACTULOSE LIQUID TO OMNICELL, TOOK 1 INSTEAD OF TWO. REMOVED TWO AND ADMINISTERED TO PT.
[2022-11-14] MEDS: CYCLOBENZAPRINE 10 MG TABLET PO SCH ×3 (08:51→17:00)
[2022-11-14] MEDS: PROSOURCE / PROSTAT (PYXIS) 30 ML UDC PO SCH ×3 (09:00→17:00)
[2022-11-14] MEDS: ENSURE ENLIVE 237 ML LIQUID (VANILLA) PO SCH ×3 (09:00→17:43)
[2022-11-14] MEDS ORDERED: THERAHONEY GEL 1.5 OZ TUBE TP SCH (15:30)
--- NOTE | 2022-11-14 17:14 | NUR ---
RN NOTES CALLED [facility]. GAVE REPORT TO ADAM. TRANSPORTATION SERVICE STATION CONSOLE OPERATOR AT 1800. WILL CONTINUE TO MONITOR PT
--- NOTE | 2022-11-14 17:43 | NUR ---
RN NOTES ALL PM MEDS REFUSED. PT EDUCATION DONE ON IMPORTANCE OF TAKING PRESCRIBED MEDS. PT STILL REFUSED. WILL CONTINUE TO MONITOR.
[2022-11-14] MEDS: TAMSULOSIN 0.4 MG CAP.SR.24H PO SCH (18:00)
--- NOTE | 2022-11-14 18:30 | NUR ---
[facility] HEALTHCARE ADVISORY SERVICES MANAGER NOTES PT LEFT FACILITY AT 1830 ACCOMPANIED BY 2 COLOR PASTE MIXER VIA AMBULANCE. PT IN NO DISTRESS. ALERT ORIENTED X3. STABLE ON ROOM AIR, ON DIAPER. MIDLINE IN PLACED DUE TO IV ANTIBIOTIC CONTINUATION AT SNF. PT REFUSED TO SIGN DISCHARGE INSTRUCTIONS. NO BELONGINGS, SIGNED BY TWO RNS. DISCHARGED VIA GURNEY. REFUSED SKIN ASSESSMENT AND PHOTOS TO BE TAKEN. HEALTH TEACHING DONE. LATEST VITALS STABLE. CHARGE NURSE AWARE. INSTRUCTED TO GO ER OR CALL 911 [facility]
[2022-11-14] MEDS ORDERED: PIPERACILLIN /TAZOBACTAM 3.375 G in IV D5W 100 ML IV SCH (21:00)
== END 2022-11-14 18:50 | DRG 871 ==
LOC: ER 11:00 → TELE-TD 14:47 → ICU 17:48 → TELE 11-12 21:17 → MED 11-12 21:30
PROVIDERS: ADMIT Internal Medicine; ATTEND Internal Medicine
PROC: 05HB33Z Insertion of Infusion Device into Right Basilic Vein, Percutaneous Approach (ICD-10-PCS; principal; 2022-11-09)
DX: A41.59 Other Gram-negative sepsis (principal); E43 Unspecified severe protein-calorie malnutrition; G93.41 Metabolic encephalopathy; I21.4 Non-ST elevation (NSTEMI) myocardial infarction; N17.0 Acute kidney failure with tubular necrosis; R65.21 Severe sepsis with septic shock; N39.0 Urinary tract infection, site not specified; C85.10 Unspecified B-cell lymphoma, unspecified site; G95.89 Other specified diseases of spinal cord; I10 Essential (primary) hypertension; Z20.822 Contact with and (suspected) exposure to COVID-19; K21.9 Gastro-esophageal reflux disease without esophagitis; N40.0 Benign prostatic hyperplasia without lower urinary tract symptoms; Z98.1 Arthrodesis status; Z79.899 Other long term (current) drug therapy; E87.5 Hyperkalemia; E86.0 Dehydration; D64.9 Anemia, unspecified; Z87.891 Personal history of nicotine dependence; F19.11 Other psychoactive substance abuse, in remission; G93.9 Disorder of brain, unspecified; B96.5 Pseudomonas (aeruginosa) (mallei) (pseudomallei) as the cause of diseases classified elsewhere; B96.1 Klebsiella pneumoniae [K. pneumoniae] as the cause of diseases classified elsewhere; J43.9 Emphysema, unspecified; K59.00 Constipation, unspecified; L89.156 Pressure-induced deep tissue damage of sacral region; Z79.82 Long term (current) use of aspirin
CPT/HCPCS: 36415; 36600; 70450-TC; 71045-TC; 80048-TC; 80053-TC; 80076-TC; 81001; 82533; 82728-TC; 82962-TC; 83540-TC; 83605-TC; 83735-TC; 84100-TC; 84443-TC; 84484-TC; 85025-TC; 85730-TC; 87040-TC; 87081-TC; 87086-TC; 93307-TC; A4223; A4349; C9803; G0378; J0692; J1720; J1815; J1940; J2543; J3370; J3490; J7030; J7050; J7060; J8540; Q9967